=== PATIENT | female | born 1995 | race Caucasian/White ===

== ENCOUNTER 2016-07-20 18:24 | Emergency (ER) | payer MEDICAID ==
--- OUTSIDE RECORDS SUMMARY | 2016-07-20 19:26 | XMS REPORT | Continuity of Care Document ---
:1995 Author Organization ([facility]) [place] [address] Phone [phone] Care Team Providers Name Role Phone Provider, No-Primary Care Primary Care Provider Unavailable Source Comments This disclosure is being made pursuant to the Care Everywhere program, applicable federal and state laws, and may not contain all informaitonavailable regarding this patient. ([facility]) Active Allergies and Adverse Reactions No Known Allergies Current Medications Prescription Sig. Disp. Refills Start Date End Date Status oxyCODONE-acetaminoph Take 1 Tab by mouth Active en 5-325 mg per every 4 hours as tablet needed. Do Not exceed 4000 mg of acetaminophen per 24 hours. oxyCODONE-acetaminoph Take 1-2 Tabs by 50 Tab 0 04/22/2014 Active en 5-325 mg per mouth every 4 hours tablet as needed for Pain. Do Not exceed 4000 mg of acetaminophen per 24 hours. Indications: PAIN Swab 1 Container 2 times 30 Each 6 04/22/2014 Active (Q-TIPS/SINGLE-TIP daily. 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 Indications: WOUND Disposable Gloves 1 Container 2 times 1 Each 3 04/22/2014 Active (NITRILE EXAM GLOVES) daily. Indications: misc WOUND Gauze Bandage 4 1/2 X 1 Package by Apply 30 Each 4 04/29/2014 Active 147 " bndg externally route 2 times daily. Indications: WOUND sodium chloride apply topically as 2000 mL 7 04/29/2014 Active (SALINE WOUND WASH) needed. Indications: 0.9 % wound wash WOUND SERTraline 50 mg Take 1 Tab by mouth 90 Tab 3 04/30/2014 Active tablet at bedtime. Indications: MAJOR DEPRESSIVE DISORDER labetalol 300 mg Take 2 Tabs by mouth 180 Tab 5 04/30/2014 Active tablet 3 times daily. Indications: HYPERTENSION diltiazem 180 mg ER Take 1 Cap by mouth 30 Cap 1 04/30/2014 Active capsule daily. Indications: HYPERTENSION Active Problems Problem Noted Date Hypertension complicating childbirth 04/29/2014 Last Assessment & Plan: -Uncontrolled HTN ,may due to renal failure , do not think its PIH as no proteinuria, no LFT elevation, platelets WNL . Gestational HTN has high risk of developing HTN and CKD IN FUTURE -Continue Labetalol goal BP is 130-140/80-85 mm HG Acute tubular necrosis 04/25/2014 Abscess or cellulitis 04/21/2014 Last Assessment & Plan: - Improved with I and D -Continue ABx Disruption of wound, unspecified as to episode of care 04/21/2014 MACO (acute kidney injury) 04/21/2014 Last Assessment & Plan: -May be from ATN due to infection and uncontrolled HTN -Creatinine is trending down -Non oliguric -No proteinuria -Avoid nephrotoxins , continue monitoring , needs nephrology follow up in 2 months period in the clinic Endometritis 04/17/2014 Sepsis(995.91) 04/17/2014 Social History Tobacco Use Types Packs/Day Years Used Date Never Smoker Alcohol Use Drinks/Week oz/Week Comments No Last Filed Vital Signs Vital Sign Reading Time Taken Blood Pressure 144/71 06/13/2014 9:42 AM CDT Pulse 86 06/13/2014 9:42 AM CDT Temperature 36.2 C (97.2 F) 05/16/2014 10:03 AM CDT Respiratory Rate 16 04/30/2014 8: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 Height 1.626 m (5' 4.02") 04/18/2014 9:16 AM 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 Weight 88.8 kg (195 lb 12.3 oz) 06/13/2014 9:42 AM CDT Body Mass Index 33.59 06/13/2014 9:42 AM CDT Oxygen Saturation 97% 04/30/2014 8: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
--- NOTE | 2016-07-20 19:46 | ERNOTE ---
ENT HPI Date of Service: 07/20/16 Presenting Symptoms: foreign body Time Seen by Provider: 07/20/16 19:15 Source: patient Exam Limitations: no limitations - Immun/Allergies/Home Medications Immunizations: IMMUNIZATION HX Immunizations Up to Date Yes History of Influenza Vaccine Yes Hx Pneumococcal Vaccination No Allergies/Adverse Reactions: Allergies Allergy/AdvReac Type Severity Reaction Status Date / Time No Known Allergies Allergy Verified 07/18/14 17:05 Home Medications: HOME MEDICATIONS Promethazine HCl [Phenergan] 25 mg PO HS 07/20/16 [Last Taken Unknown] - History of Present Illness Narrative: patient presents to ER for left ear fullness. Date (Duration): 07/20/16 Severity: Present: mild ENT Location: Present: ear (L) Prearrival Treatment: Present: no prearrival treatment Modifying Factors - Improves: Reports: nothing Modifying Factors - Worsens: Reports: nothing Associated Symptoms - ENT: Reports: change in hearing. Denies: fever, malaise, sore throat, facial pain/swelling, ear drainage, headache Review of Systems - Review of Systems Constitutional: Present: no symptoms reported EYE: Present: no symptoms reported ENT: Present: See HPI, ear pain Respiratory: Present: no symptoms reported Cardiology: Present: no symptoms reported Gastrointestinal/Abdominal: Present: no symptoms reported Genitourinary: Present: no symptoms reported Musculoskeletal: Present: no symptoms reported Skin: Present: no symptoms reported Neurological: Present: no symptoms reported Endocrine: Present: no symptoms reported Hematologic/Lymphatic: Present: no symptoms reported Psych: Present: no symptoms reported All Other Systems: All systems neg except as marked - Patient's Past Medical History Patient History - Medical: No pertinent hx Patient History - Cardiac/Respiratory: No pertinent hx Patient History - Cancer: No Hx of Cancer Patient History - Surgical Procedures: Patient History - Other: None LMP (females 10-50): currently - Social History Living Situations: spouse Abuse History: No History of abuse Psych History: No pertinent hx Does anyone smoke in the home?: Yes Smoking Status: Current every day smoker Have you smoked in the past 12 months: Yes Alcohol Use: none Drug Use: none - Immunizations Immunizations Up to Date: Yes Hx Pneumococcal Vaccination: No History of Influenza Vaccine: Yes Physical Exam - Physical Exam Narrative: left ear TM occluded with wax. General Appearance: Present: wd/wn, alert, no apparent distress Eye Exam: Normal inspection: bilateral Ears, Nose, Throat: Present: normal except -, abnormal TM (L). Absent: nasal congestion, sinus pain/drainage, pharyngeal swelling Neck: Present: normal inspection, nontender Respiratory: Present: no respiratory distress, normal breath sounds, lungs clear Cardiovascular/Chest: Present: regular rate, rhythm, no murmur, normal peripheral pulses Gastrointestinal/Abdominal: Present: normal bowel sounds, soft Back Exam: Present: normal inspection, normal range of motion Extremity Exam: Present: normal inspection, normal range of motion, no edema Neurological Exam: Present: alert, oriented, normal mood/affect Skin Exam: Present: normal color, warm/dry. Absent: skin rash Lymphatic Exam: Present: no adenopathy ED Progress - Vital Signs Patient's Vital Signs:: I have reviewed the patient's vital signs. Vital Signs: Vital Signs 07/20/16 18:51 Temperature 37.3 C Pulse Rate 90 Respiratory 16 Rate Blood Pressure 155/84 O2 Sat by Pulse 98 Oximetry - Progress/Reassessment Chief Complaint: Earache Progress:: Improved Plan - Plan Plan: left ear flushed with warm water ( 60ml), small ear wax ball floated out with out pain. Ear canal now clean, left TM WNL, no redness observed. patient tolerated procedure well. Departure Clinical Impression: Excess ear wax Qualifiers: Laterality: left Qualified Code(s): H61.22 - Impacted cerumen, left ear - Departure Disposition: Home self-care Condition: Stable Instructions: Earwax Buildup Additional Instructions: Continue previous home medications. Return to the emergency room if symptoms continue or persist. take [id number] pain medications as needed for pain.
[2016-07-20 19:50] VITALS: BP 141/73
== END 2016-07-20 19:48 | disposition home or self-care (01) ==
LOC: ER 18:24
PROC: 09C1XZZ Extirpation of Matter from Left External Ear, External Approach (ICD-10-PCS; principal; 2016-07-20)
DX: H61.22 Impacted cerumen, left ear (principal); F17.200 Nicotine dependence, unspecified, uncomplicated; Z33.1 Pregnant state, incidental